=== PATIENT | female | born 2000 | race Caucasian/White ===

== ENCOUNTER 2019-03-24 21:00 | Emergency (ER) | payer BC ==
--- OUTSIDE RECORDS SUMMARY | 2019-03-24 21:10 | XMS REPORT | Summary of Care ---
:2000 Author Organization [facility] Address [address] [facility] [place] [address] Care Team Providers Name Role Phone Gino Lucas Primary Care Provider Reason for Visit Reason Comments New Patient dicuss BC options Encounter Details Date Type Department Care Team Description 02/22/2019 Office Visit Sarah GERMINATION WORKER/Midwives Dora Baker, Initiation of OCP (BCP) (Primary Dx); 1 [facility] CNM Well woman exam without gynecological exam; [place] [id number] [address] [facility] Screen for STD (sexually transmitted disease); [phone] [place] [address] Contraceptive education [phone] Allergies No Known Allergiesdocumented as of this encounter (statuses as of 02/22/2019) Medications Medication Sig Dispensed Refills Start Date End Date Status levonorgestrel-ethin Take 1 Tab by 28 Tab 11 02/22/2019 Active yl estradiol mouth DAILY. (NORDETTE-28) 0.15-30 MG-MCG Oral Tab ibuprofen (MOTRIN) Take 1 Tab by 30 Tab 1 02/04/2017 Discontinued 600 MG Oral mouth EVERY SIX 9 TabIndications: HOURS NEEDED Gastrocnemius muscle for Pain. strain, right, initial encounter albuterol HFA Take 2 Puffs by 1 Inhaler 2 06/05/2017 Discontinued (VENTOLIN) 108 (90 inhalation 9 Base) MCG/ACT EVERY FOUR Inhalation Aero HOURS NEEDED SolnIndications: (cough/wheezing Acute bronchitis, ). unspecified organism methylPREDNISolone, As directed on 1 Each 0 12/17/2018 Discontinued dose-silverio, (MEDROL) 4 package 9 MG Oral Tablet Therapy PackIndications: Acute right-sided low back pain without sciatica cyclobenzaprine Take 1 Tab by 20 Tab 0 12/17/2018 Discontinued (FLEXERIL) 10 MG mouth EVERY 9 Oral TabIndications: BEDTIME Acute right-sided NEEDED (back low back pain pain/spasm). without sciatica documented as of this encounter (statuses as of 02/22/2019) Active Problems No known active problemsdocumented as of this encounter (statuses as of 2018) Immunizations Name Administration Dates Next Due DTAP Vaccine 08/22/2003, 05/06/2001, 1999, 1999, 1999 HIB 04/18/2000, 1999, 1999, 1999 Hepatitis B Vaccine 02/01/2000, 1999, 1999 Human Papillomavirus 10/13/2011, 06/11/2011, 04/03/2011 Influenza (IM) Preservative Free 02/03/2017, 02/20/2016 Influenza (IM) W/Pres 05/30/2015 MENINGOCOCCAL CONJUGATE VACCINE 02/03/2017, 04/03/2011 MMR VACCINE 08/22/2003, 05/06/2001 Polio - Inactivated Vaccine 08/22/2003, 02/01/2000, 1999, 1999 TDAP Vaccine 04/03/2011 Varicella Vaccine Live 06/11/2011 documented as of this encounter Social History Tobacco Use Types Packs/Day Years Used Date Never Smoker 0 Smokeless Tobacco: Never Used Alcohol Use Drinks/Week oz/Week Comments No Sex Assigned at Date Recorded Not on file Job Start Date Occupation Industry Not on file Not on file Not on file Travel History Travel Start Travel End No recent travel history available. documented as of this encounter Last Filed Vital Signs Vital Sign Reading Time Taken Comments Blood Pressure 104/66 02/22/2019 3:39 PM EST Pulse - - Temperature - - Respiratory Rate - - Oxygen Saturation - - Inhaled Oxygen Concentration - - Weight 63.5 kg (140 lb) 02/22/2019 3:39 PM EST Height 165.1 cm (5' 5") 02/22/2019 3:39 PM EST Body Mass Index 23.3 02/22/2019 3:39 PM EST documented in this encounter Patient Instructions Patient InstructionsDora Baker CNM - 02/22/2019 3:20 PM ESTCONDOMS!! CONDOMS!! CONDOMS!! STD screening Start control pills this Thursday. [employer] 2006 revised edition of Control Pills reviewed. Please keep for your review. Please take your pills as discussed. Because of the slight increase in risk, the patient is asked to back up her OCP with condom or other method during this (or any) cycle during which she is taking antibiotics. Return to clinic in 3 months for pill check, sooner if needed. documented in this encounter Progress Notes Dora Baker CNM - 02/22/2019 3:20 PM EST PATIENT: Kristopher Barraza DATE OF SERVICE: 02/22/2019 Chief Complaint Patient presents with New Patient jennifer ARAIZA options SUBJECTIVE: Kristopher Barraza a 18-y.o. female who presents to the Clinic today for Contraception and education for disease/STD prevention and screening. Last menstrual period: Patient's last menstrual period was 02/11/2019 (exact date). OB History Para Term AB Living 0 0 0 0 0 0 SAB TAB Ectopic Multiple Live Births 0 0 0 0 0 Obstetric Comments Menarche - age 12 No outpatient medications have been marked as taking for the 02/22/19 encounter (Office Visit) with Dora Baker CNM. No Known Allergies Past Medical History: Diagnosis Date Anxiety History reviewed. No pertinent surgical history. Family History Problem Relation Age of Onset Diabetes Paternal Grandmother Psychiatry Mother Depression Social History Socioeconomic History Marital status: Single Spouse name: Not on file Number of children: Not on file Years of education: Not on file Highest education level: Not on file Occupational History Not on file Social Needs Financial resource strain: Not on file Food insecurity: Worry: Not on file Inability: Not on file Transportation needs: Medical: Not on file Non-medical: Not on file Tobacco Use Smoking status: Never Smoker Smokeless tobacco: Never Used Substance and Sexual Activity Alcohol use: No Drug use: No Sexual activity: Yes Partners: Male Lifestyle Physical activity: Days per week: Not on file Minutes per session: Not on file Stress: Not on file Relationships Social connections: Talks on phone: Not on file Gets together: Not on file Attends sabianist service: Not on file Active member of club or organization: Not on file Attends meetings of clubs or organizations: Not on file Relationship status: Not on file Intimate partner violence: Fear of current or ex partner: Not on file Emotionally abused: Not on file Physically abused: Not on file Forced sexual activity: Not on file Other Topics Concern Back Care Not Asked Bike Helmet Not Asked Blood Transfusions Not Asked Caffeine Concern Not Asked Exercise Not Asked Hobby Hazards Not Asked International Travel Not Asked Service Not Asked Occupational Exposure Not Asked Seat Belt Not Asked Self-Exams Not Asked Sleep Concern Not Asked Special Diet Not Asked Stress Concern Not Asked Weight Concern Not Asked Social History Narrative Not on file ROS: All remaining review of systems was negative. Denies chest pain, SOB, Nausea, vomitting, constipation or diarrhea. No urinary compliants. Denies frequency, urgency or incontinence. No fever, chills or constitutional symptoms. No dizziness, musculoskeletal complaints, anxiety or depression. No excessive fatigue. OBJECTIVE: PHYSICAL EXAM: VITAL SIGNS: Blood pressure 104/66, height 5' 5" (1.651 m), weight 140 lb (63.5 kg), last menstrual period 02/11/2019, not currently . SKIN: Clear, warm, and dry. No rashes or obvious lesions noted. NECK: Supple without adenopathy or thyromegaly. HEART: S1, S2, Regular rate and rhythm, without murmur, rub, or gallop. LUNGS: Clear to auscultation. No wheezes, rales, or rhonchi. BREASTS: no masses, no lumps palpated, SBE discussed. ABDOMEN: Soft, nontender, and nondistended. No mass. No organomegaly. Bowel sounds are normal times four. No lymphadenopathy or hernia. EXTREMITIES: No clubbing, cyanosis or edema noted. CUSTOMER SERVICE ASSOCIATE: Deferred,cultures obtained ASSESSMENT:/after ICD-9-CM ICD-10-CM 1. Initiation of OCP (BCP) V25.01 Z30.011 2. Well woman exam without gynecological exam V70.0 Z00.00 3. Screen for STD (sexually transmitted disease) V74.5 Z11.3 KYLER / CECE / TRIC DNA PROBE GC/CHLAMYDIA PCR ASSAY 4. Contraceptive education V25.09 Z30.09 More than 50% of the provider/patient encounter was spent with counseling and coordination of care. Total visit time involved was 30 minutes. Urine Hcg is negative See detailed AVS RTC 3 months prn for pill Greta Baker CNM 02/22/2019 16:01 documented in this encounter Plan of Treatment Date Type Specialty Care Team Description 05/23/2019 Office Visit offset plate maker Dora Baker CNM [address] [place] [address] [phone] Name Type Priority Associated Diagnoses Order Schedule KYLER / CECE / TRIC Lab Routine Screen for STD (sexually 1 Occurrences starting DNA PROBE transmitted disease) 02/22/2019 until 08/21/2019 GC/CHLAMYDIA PCR Lab Routine Screen for STD (sexually Expected: 02/22/2019, ASSAY transmitted disease) Expires: 08/21/2019 Health Maintenance Due Date Last Done Comments CHLAMYDIA SCREENING 1999 DEPRESSION SCREENING 2011 HIV SCREENING 2014 INFLUENZA VACCINE (#1) 2018 02/03/2017, 02/20/2016, 05/30/2015 HPV IMMUNIZATION SERIES Completed 10/13/2011, 06/11/2011, 06/11/2011, Additional history exists MENINGOCOCCAL VACCINE IMM Completed 02/03/2017, 04/03/2011 PNEUMOCOCCAL 0-64 YRS Aged Out No longer eligible based on patient's age to complete this topic documented as of this encounter Procedures Procedure Name Priority Date/Time Associated Diagnosis Comments HCG, QUALITATIVE, Routine 02/22/2019 4:45 PM Initiation of OCP Results for this URINE (AMB POCT) EST (BCP) procedure are in the results section. documented in this encounter Results HCG, QUALITATIVE, URINE (AMB POCT) (02/22/2019 4:45 PM EST) HCG QUAL URINE (POCT) Negative Negative [facility] Control Line Present Present [facility] Lot Number [id number] [facility] Expiration Date 09/2020 [facility] Specimen Performing Organization Address City/State/Zipcode Phone Number [facility] [address] [place] [id number] documented in this encounter Visit Diagnoses Diagnosis Initiation of OCP (BCP) - Primary General counseling for prescription of oral contraceptives Well woman exam without gynecological exam Routine general medical examination at a health care facility Screen for STD (sexually transmitted disease) Screening examination for venereal disease Contraceptive education Other general counseling and advice for contraceptive management documented in this encounter Insurance Payer Benefit Plan Subscriber ID Effective Dates Phone Address Type / Group [facility] xxxxxxxxxxxxxxx 2018-[place] ([employer] PPO) [phone] [id number] (Work) documented as of this encounter
[2019-03-24 21:15] VITALS: BP 125/78
--- NOTE | 2019-03-24 21:34 | UC ---
Complaint Female HPI - HPI Summary HPI Summary: 18-year-old female presents with complaints of dysuria, frequency, urgency, and cloudy urine for the past week and a half. She has noted some suprapubic discomfort. She is currently having her menses. Reports her boyfriend recently tested positive for chlamydia and she was treated. Requesting follow up testing. Denies fever, chills, back or flank pain, nausea, vomiting, vaginal discharge, vaginal itching, genital lesions, or dyspareunia. - History Of Current Complaint Chief Complaint: UCGU Stated Complaint: UTI Time Seen by Provider: 03/24/19 21:07 Hx Obtained From: Patient Hx Last Menstrual Period: now Pain Intensity: 7 - Allergies/Home Medications Allergies/Adverse Reactions: Allergies Allergy/AdvReac Type Severity Reaction Status Date / Time No Known Allergies Allergy Verified 03/24/19 21:15 PMH/Surg Hx/FS Hx/Imm Hx Previously Healthy: Yes - Denies significant PMH - Surgical History Surgical History: None - Family History Known Family History: Positive: Non-Contributory - Social History Occupation: Student Lives: Dormitory/Roommates Alcohol Use: Rare Substance Use Type: None Smoking Status (MU): Never Smoked Tobacco Review of Systems All Other Systems Reviewed And Are Negative: Yes Constitutional: Negative: Fever, Chills Respiratory: Positive: Negative Cardiovascular: Positive: Negative Gastrointestinal: Positive: Abdominal Pain - Suprapubic. Negative: Vomiting, Nausea Genitourinary: Positive: Dysuria, Frequency, Urgency. Negative: Hematuria, Vaginal/Penile Itching, Vaginal/Penile Discharge, Vaginal/Penile Pain, Ulceration/Lesion, Abnormal Bleeding Musculoskeletal: Positive: Negative Neurological: Positive: Negative Is Patient Immunocompromised?: No Physical Exam - Summary Physical Exam Summary: GENERAL APPEARANCE: Well developed, well nourished, alert and cooperative, and appears to be in no acute distress. CARDIAC: Normal S1 and S2. No S3, S4 or murmurs. Rhythm is regular. There is no peripheral edema, cyanosis or pallor. Extremities are warm and well perfused. Capillary refill is less than 2 seconds. Peripheral pulses intact. LUNGS: Clear to auscultation without rales, rhonchi, wheezing or diminished breath sounds. ABDOMEN: Positive bowel sounds. Soft, nondistended, nontender. No guarding or rebound. No masses or hepatosplenomegally. No CVA tenderness. MUSKULOSKELETAL: ROM intact to all extremities. No joint erythema or tenderness. Normal muscular development. Normal gait. SKIN: Skin normal color, texture and turgor with no lesions or eruptions. Triage Information Reviewed: Yes Vital Signs: Initial Vital Signs Temp 98.1 F 03/24/19 21:11 Pulse 86 03/24/19 21:11 Resp 18 03/24/19 21:11 BP 125/78 03/24/19 21:11 Pulse Ox 100 03/24/19 21:11 Vital Signs Reviewed: Yes Complaint Female Dx - Course Course Of Treatment: 18-year-old female presents with complaints of dysuria, frequency, urgency, and cloudy urine for the past week and a half. She has noted some suprapubic discomfort. She is currently having her menses. Reports her boyfriend recently tested positive for chlamydia and she was treated. Requesting follow up testing. Denies fever, chills, back or flank pain, nausea, vomiting, vaginal discharge, vaginal itching, genital lesions, or dyspareunia. Afebrile. Vital signs stable. Patient's exam was overall unremarkable. [id number] urinalysis showed trace leukocytes, 3+ blood, 2+ protein, 1+ ketones, 1+ bilirubin. Urine was negative. Urine culture is pending. Screening for gonorrhea and chlamydia is also pending. Reviewed results with the patient. Based on her symptoms will treat empirically for a urinary tract infection with Bactrim DS 1 tablet twice daily 5 days. She was given the first dose in the clinic. She is to return here or follow up at [facility] in 3 days if symptoms do not improve. Anticipatory guidance and warning symptoms were reviewed with the patient. Verbalizes understanding and agrees with plan of care. - Differential Dx/Diagnosis Differential Diagnosis/HQI/PQRI: Pelvic Inflammatory Disease, , Sexually Transmitted Disease, Urinary Tract Infection Provider Diagnosis: UTI (urinary tract infection) Discharge ED - Sign-Out/Discharge Documenting (check all that apply): Patient Departure All imaging exams completed and their final reports reviewed: No Studies - Discharge Plan Condition: Stable Disposition: HOME Prescriptions: Sulfamethox/Trimethoprim DS* [Bactrim DS 800/160 TAB*] 1 tab PO BID #9 tab Patient Education Materials: Urinary Tract Infection in Women (ED) Referrals: No Primary Care Phys,NOPCP [Primary Care Provider] - Additional Instructions: Your urine test in the clinic today is suggestive of a urinary tract infection. We will start you on an antibiotic to treat for the infection. We will also send a urine culture today to see what bacteria grow out and make sure the antibiotic you were prescribed is appropriate to treat the infection. It will take 48-72 hours to get these results. We will contact you if there is any change in your treatment plan. Start Bactrim DS 1 tab twice a day for 5 days. We gave you the first dose in the clinic. Drink plenty of fluids. To help prevent urinary tract infections: 1) Be sure to wipe from front to back. 2) Urinate immediately after any sexual intercourse. 3) Avoid taking bubble baths. Return here or follow up with at the [facility] in 3-5 days if symptoms persist. Seek immediate medical attention in the emergency room if you develop fever greater than 100.5 F, have severe abdominal pain, persistent vomiting, or any worsening of symptoms. - Billing Disposition and Condition Condition: STABLE Disposition: Home - Attestation Statements Provider Attestation: This patient was not seen by me. I was available for consult. Chart reviewed. JONEL
[2019-03-24] MEDS ORDERED: Sulfamethox/Trimethoprim DS 800/160* TAB PO ONE (22:00)
[2019-03-28 12:39] LABS: Chlamydia trachomatis NAA Positive (Negative); Neisseria gonorrhoeae (GC) NAA Negative (Negative)
--- NOTE | 2019-03-28 15:32 | UC ---
- Progress Note Progress Note: Results + for Chlamydia. Patient was NOT treated at the clinic, will need to return for treatment. No sex until treated. -Zayra Perry. PAC Course/Dx - Diagnoses Provider Diagnoses: UTI (urinary tract infection) Discharge ED - Sign-Out/Discharge Documenting (check all that apply): Patient Departure All imaging exams completed and their final reports reviewed: No Studies - Discharge Plan Condition: Stable Disposition: HOME Prescriptions: Sulfamethox/Trimethoprim DS* [Bactrim DS 800/160 TAB*] 1 tab PO BID #9 tab Patient Education Materials: Urinary Tract Infection in Women (ED) Referrals: No Primary Care Phys,NOPCP [Primary Care Provider] - Additional Instructions: Your urine test in the clinic today is suggestive of a urinary tract infection. We will start you on an antibiotic to treat for the infection. We will also send a urine culture today to see what bacteria grow out and make sure the antibiotic you were prescribed is appropriate to treat the infection. It will take 48-72 hours to get these results. We will contact you if there is any change in your treatment plan. Start Bactrim DS 1 tab twice a day for 5 days. We gave you the first dose in the clinic. Drink plenty of fluids. To help prevent urinary tract infections: 1) Be sure to wipe from front to back. 2) Urinate immediately after any sexual intercourse. 3) Avoid taking bubble baths. Return here or follow up with at the [facility] in 3-5 days if symptoms persist. Seek immediate medical attention in the emergency room if you develop fever greater than 100.5 F, have severe abdominal pain, persistent vomiting, or any worsening of symptoms. - Billing Disposition and Condition Condition: STABLE Disposition: Home
== END 2019-03-24 22:10 | disposition home or self-care (01) ==
LOC: UCEAST 21:00
DX: N39.0 Urinary tract infection, site not specified (principal)
CPT/HCPCS: 81003; 84702; 87491; 87591; 99202; A9270-GY; G0463